=== PATIENT | female | born 1955 | race Caucasian/White ===

== ENCOUNTER 2016-02-21 18:04 | Emergency (ER) | payer MEDICAID ==
[2016-02-21] MEDS ORDERED: SODIUM CHLORIDE 0.9% 1,000 ML ONE (18:17)
[2016-02-21] MEDS ORDERED: SODIUM CHLORIDE 0.9% 2,000 ML ONE (19:33)
== END 2016-02-21 20:22 | disposition home or self-care (01) ==
LOC: ER 18:04
CPT/HCPCS: 36415; 80053; 85025; 93005; 96360; 96361